=== PATIENT | female | born 1975 | race Caucasian/White ===

== ENCOUNTER 2022-08-27 10:00 | Outpatient (CLI) | payer OTHER, SELFPAY ==
--- NOTE | 2022-08-27 10:15 | CRLHL7_ITS ---
For Patients: As a result of the Century Cures Act, medical imaging exams and procedure reports are released immediately into your electronic medical record. You may view this report before your referring provider. If you have questions, please contact your health care provider. BILATERAL SCREENING MAMMOGRAM WITH COMPUTER-AIDED DETECTION AND TOMOSYNTHESIS TECHNIQUE: CC and MLO views were obtained. These mammographic images have been obtained using full-field digital technique. These mammographic images were interpreted with the benefit of computer-aided detection. Breast Tomosynthesis was used in this interpretation. COMPARISON FILM: 06/19/21, 10/12/19, 12/17/17. FINDINGS: The breasts are heterogeneously dense, which may obscure small masses IMPRESSION: There is no radiographic evidence for malignancy. ASSESSMENT: BI-RADS Category 1: Negative RECOMMENDATION: Routine screening mammogram in 1 year. A lay language report of this examination will be provided to the patient. Jalen Pascual M.D. Diagnostic Radiologist [email or web address] Transcribed: 3:46 pm DW/Dictated by: Jalen Pascual MD @ 08/27/2022 12:22:00 PM (Electronically Signed)
== END 2022-08-27 10:01 | disposition home or self-care (01) ==
LOC: MAMMO 10:01
PROVIDERS: PCP Physician Assistant Medical; Visit Provider Physician Assistant Medical
DX: Z12.31 Encounter for screening mammogram for malignant neoplasm of breast (principal); R92.2 Inconclusive mammogram
CPT/HCPCS: 77063; 77067

== ENCOUNTER 2022-10-22 11:37 | Outpatient (CLI) | payer OTHER, SELFPAY ==
[2022-10-22 13:38] LABS: Cholesterol* 153 mg/dL (90-199)
[2022-10-22 13:39] LABS: Glucose* 97 mg/dL (60-115); HDL Cholesterol* 60 mg/dL (>=50); LDL Cholesterol Calculated 79 mg/dL (<100); Triglycerides* 69 mg/dL (40-149)
== END 2022-10-22 11:38 | disposition home or self-care (01) ==
PROVIDERS: PCP Physician Assistant Medical; Visit Provider Physician Assistant Medical
DX: Z00.00 Encounter for general adult medical examination without abnormal findings (principal); Z13.1 Encounter for screening for diabetes mellitus; Z13.6 Encounter for screening for cardiovascular disorders
CPT/HCPCS: 80061; 82947

== ENCOUNTER 2023-10-16 08:07 | Outpatient (CLI) | payer BC, SELFPAY | END 2023-10-16 08:08 | disposition home or self-care (01) | LOC: NFLDREF 10-19 11:12 | PROVIDERS: PCP Physician Assistant Medical; Referring Provider Physician Assistant Medical; Visit Provider Physician Assistant Medical | DX: Z00.00 Encounter for general adult medical examination without abnormal findings (principal); R53.83 Other fatigue | CPT/HCPCS: 80053; 80061; 84443 ==

== ENCOUNTER 2023-11-02 07:17 | Outpatient (CLI) | payer BC, SELFPAY ==
--- NOTE | 2023-11-02 09:01 | W.ANESCHARGE ---
Anesthesia Charges Start Date/Time Anesthesia Start Date: 11/02/23 Anesthesia Start Time: 08:38 Stop Date/Time Anesthesia Stop Date: 11/02/23 Anesthesia Stop Time: 08:58
--- NOTE | 2023-11-02 09:17 | W.ANESCHARGE ---
Anesthesia Charges Start Date/Time Anesthesia Start Date: 11/02/23 Anesthesia Start Time: 08:38 Stop Date/Time Anesthesia Stop Date: 11/02/23 Anesthesia Stop Time: 08:58
== END 2023-11-02 07:18 | disposition home or self-care (01) ==
LOC: OP CLINIC 07:18
PROVIDERS: PCP Physician Assistant Medical; Visit Provider Internal Medicine
DX: Z12.11 Encounter for screening for malignant neoplasm of colon (principal)
CPT/HCPCS: 00811; 00812; 45378; J2704

== ENCOUNTER 2023-12-22 17:34 | Outpatient (CLI) | payer BC, SELFPAY ==
--- NOTE | 2023-12-22 17:40 | MM_ITS ---
Patient: NISREEN DIAZ Facility:?[facility] Patient ID:?[id number] Site Patient ID:?[id number]. Site :?[id number] Study:?XRay-Breast Bilateral 3D screening mammogram w/cad-12/22/2023 5:55:23 PM Ordering Physician:Astrid Final Report: BILATERAL SCREENING MAMMOGRAM WITH COMPUTER-AIDED DETECTION AND TOMOSYNTHESIS TECHNIQUE: CC and MLO views were obtained. These mammographic images have been obtained using full-field digital technique. These mammographic images were interpreted with the benefit of computer-aided detection. Breast Tomosynthesis was used in this interpretation. COMPARISON FILM: 08/27/22, 06/19/21, 10/12/19. FINDINGS: The breasts are extremely dense, which lowers the sensitivity of mammography. IMPRESSION: There is no radiographic evidence for malignancy. ASSESSMENT: BI-RADS Category 2: Benign RECOMMENDATION: Routine screening mammogram in 1 year. A lay language report of this examination will be provided to the patient. Jalen Pascual M.D. Diagnostic Radiologist [email or web address] DSM/sp R& Transcribed: 4:37 p.m. SP/Dictated by: Jalen Pascual MD @ 12/23/2023 11:33:00 AM Signed by:?Jalen Pascual MD @12/24/2023 5:30:05 AM (Electronic Signature)
== END 2023-12-22 17:35 | disposition home or self-care (01) ==
LOC: MAMMO 17:34
PROVIDERS: PCP Physician Assistant Medical; Visit Provider Physician Assistant Medical
DX: Z12.31 Encounter for screening mammogram for malignant neoplasm of breast (principal); R92.2 Inconclusive mammogram
CPT/HCPCS: 77063; 77067

== ENCOUNTER 2024-01-13 13:06 | Outpatient (CLI) | payer BC, SELFPAY ==
--- NOTE | 2024-01-19 12:50 | W.PM.SLEEP ---
Sleep Study Details Details Interpreting Provider: Cedric Date of Sleep Study: 01/13/24 Sleep Study Details: STUDY TYPE:? Home unattended ? BMI:? Not recorded ORDERING PROVIDER:? Cedric INDICATION:? Concerns about sleep apnea ? SLEEP SUMMARY:? 495 minutes monitored RESPIRATORY SUMMARY:? AHI 13.8 Low oxygen 70 13.6% of study oxygen less than 90% No snoring was noted PERIODIC LIMB MOVEMENTS OF SLEEP:? Not recorded CARDIAC:? Range 52-255, mean 68.7 IMPRESSION:? Significant tachycardia was noted with a rate of 255. Further cardiac evaluation may be indicated Mild obstructive sleep apnea with significant desaturations. RECOMMENDATION: Treatment options include AutoSet CPAP, dental appliance and/or airway expansion surgery. Because of the cardiac history and in-lab titration may be preferred
--- NOTE | 2024-03-08 12:18 | W.PM.SLEEP ---
Sleep Study Details Details Interpreting Provider: Cedric Date of Sleep Study: 01/13/24 Sleep Study Details: STUDY TYPE:? Home unattended ? BMI:? Not recorded ORDERING PROVIDER:? Cedric INDICATION:? Concerned about sleep apnea ? SLEEP SUMMARY:? 495 minutes monitor RESPIRATORY SUMMARY:? AHI 13.8, low oxygen 70, 13.6% of study oxygen less than 90% No snoring noted PERIODIC LIMB MOVEMENTS OF SLEEP:? Not recorded CARDIAC:? For 53-87, mean 68.7 beats per minute IMPRESSION:? Mild obstructive sleep apnea with significant hypo oxygenation RECOMMENDATION: Treatment options include CPAP dental appliance possibly weight loss and/or airway expansion surgery.
== END 2024-01-13 13:07 | disposition home or self-care (01) ==
PROVIDERS: PCP Physician Assistant Medical; Visit Provider Otolaryngology
DX: G47.33 Obstructive sleep apnea (adult) (pediatric) (principal); R00.0 Tachycardia, unspecified
CPT/HCPCS: 95806

== ENCOUNTER 2024-01-28 14:57 | Outpatient (CLI) | payer BC, SELFPAY | END 2024-01-28 14:58 | disposition home or self-care (01) | PROVIDERS: PCP Physician Assistant Medical; Visit Provider Physician Assistant Medical | DX: R00.0 Tachycardia, unspecified (principal) | CPT/HCPCS: 83735; 84443 ==

== ENCOUNTER 2024-06-01 18:00 | Outpatient (CLI) | payer BC, SELFPAY | END 2024-06-01 18:01 | disposition home or self-care (01) | LOC: NFLDREF 06-02 10:49 | PROVIDERS: PCP Physician Assistant Medical; Referring Provider Physician Assistant Medical; Visit Provider Physician Assistant | DX: N30.01 Acute cystitis with hematuria (principal); B96.20 Unspecified Escherichia coli [E. coli] as the cause of diseases classified elsewhere | CPT/HCPCS: 87086; 87186 ==

== ENCOUNTER 2024-10-26 08:19 | Outpatient (CLI) | payer BC, SELFPAY | END 2024-10-26 08:20 | disposition home or self-care (01) | PROVIDERS: PCP Physician Assistant Medical; Visit Provider Physician Assistant Medical | DX: G25.81 Restless legs syndrome (principal); Z13.220 Encounter for screening for lipoid disorders; Z13.21 Encounter for screening for nutritional disorder; Z13.29 Encounter for screening for other suspected endocrine disorder | CPT/HCPCS: 80048; 80061; 82306; 82607; 84443 ==

== ENCOUNTER 2025-02-10 14:21 | Outpatient (CLI) | payer BC, SELFPAY ==
--- NOTE | 2025-02-10 14:40 | CRLHL7_ITS ---
For Patients: As a result of the Century Cures Act, medical imaging exams and procedure reports are released immediately into your electronic medical record. You may view this report before your referring provider. If you have questions, please contact your health care provider. INDICATION: BILATERAL SCREENING MAMMOGRAM, ASYMPTOMATIC 49 Y/O FEMALE COMPARISON: 12/22/2023, 08/27/2022, 06/19/2021 TECHNIQUE: Digital mammogram in CC and MLO projections including computer-aided detection (CAD) and tomosynthesis. BREAST COMPOSITION: The breasts are heterogeneously dense, which may obscure small masses. FINDINGS: No suspicious findings. ASSESSMENT: BI-RADS 2 Benign RECOMMENDATION: Annual screening mammogram. A lay language report of this examination will be provided to the patient. Dictated by: Jalen Pascual MD @ 02/20/2025 13:13:38 (Electronically Signed)
== END 2025-02-10 14:22 | disposition home or self-care (01) ==
LOC: MAMMO 14:21
PROVIDERS: PCP Physician Assistant Medical; Visit Provider Physician Assistant Medical
DX: Z12.31 Encounter for screening mammogram for malignant neoplasm of breast (principal); R92.333 Mammographic heterogeneous density, bilateral breasts
CPT/HCPCS: 77063; 77067